=== PATIENT | male | born 1960 | race Caucasian/White ===

== ENCOUNTER 2023-04-22 00:43 | Inpatient (IN) | payer OTHER ==
[2023-04-22] MEDS ORDERED: predniSONE 20 MG TAB ONE (01:12)
[2023-04-22] MEDS ORDERED: Magnesium 2 GM/50 ML BAG (IN WATER) ONE (01:12)
[2023-04-22] MEDS ORDERED: Doxycycline 100 MG CAP ONE (01:12)
[2023-04-22] MEDS ORDERED: Ipratropium/Albuterol 3 ML NEB ONE ×2 (01:22→04:02)
[2023-04-22 01:24] LABS: #Basophils 0.1 thou/uL (0.0-0.2); #Eosinphils 0.1 thou/uL (0.0-0.7); #Monocytes 0.4 thou/uL (0.11-0.59); #Neutrophils 3.7 thou/uL (1.40-6.50); %Basophils 0.9 % (0.0-1.0); %Eosinophils 1.9 % (0.0-10.0); %Lymphocytes 36.1 % (21.0-51.0); %Monocytes 6.1 % (0.0-10.0); %Neutrophils 54.6 % (42.0-75.0); Hemoglobin 13.1 g/dL (14.0-18.0); Mean Corpuscular HGB CONC 34.8 g/dL (32.0-36.0); Mean Corpuscular Hemoglobin 32.8 pg (27.0-31.0); Mean Corpuscular Volume 94.2 fl (78.0-98.0); Mean Platelet Volume 9.1 fL (7.4-10.4); Platelet Count 304 10x3/uL (130-400); RBC Distribution Width 12.9 % (11.5-14.5); Red Blood Cell (RBC) Count 3.99 mill/uL (4.70-6.10); White Blood Cell (WBC) Count 6.7 10x3/uL (4.8-10.8)
[2023-04-22 02:49] LABS: ALT (SGPT) 21 U/L (8-55); AST (SGOT) 26 U/L (5-34); Albumin 3.9 g/dL (3.4-4.8); Alkaline Phosphatase 67 U/L (40-110); Anion Gap 20 mmol/L (10-20); BUN (Urea Nitrogen) 16 mg/dL (8.4-25.7); Bilirubin, Total 0.3 mg/dL (0.2-1.2); Calc. Creatinine Clearance 0 mL/min (70-130); Calcium 8.9 mg/dL (7.8-10.44); Carbon Dioxide 20 mmol/L (23-31); Chloride 105 mmol/L (98-107); Estimated GFR 76; Globulin 2.9 g/dL (2.4-3.5); Glucose 118 mg/dL (80-115); Potassium 3.8 mmol/L (3.5-5.1); Protein, Total 6.8 g/dL (5.8-8.1); Sodium 141 mmol/L (136-145)
[2023-04-22] MEDS ORDERED: Ondansetron PF 4 MG/2 ML Vial IVP PRN (03:38)
[2023-04-22] MEDS ORDERED: Ipratropium/Albuterol 3 ML NEB EZPAP PRN (03:39)
[2023-04-22 04:59] VITALS: BMI 20.2
[2023-04-22] MEDS ORDERED: methylPREDNISolone Sod Succ 40 MG VIAL ONE (06:17)
[2023-04-22] MEDS: methylPREDNISolone Sod Succ 40 MG VIAL IVP SCH ×3 (06:19→23:04)
[2023-04-22] MEDS: Ipratropium/Albuterol 3 ML NEB NEB SCH ×6 (08:40→23:30)
[2023-04-22] MEDS: Mometasone 200 MCG/Formoterol 5 MCG 120 PUFF INHALER INH SCH ×3 (08:40→18:26)
[2023-04-22] MEDS ORDERED: Ondansetron ODT 4 MG TAB PO PRN (12:14)
[2023-04-22] MEDS ORDERED: Electrolyte Replacement Protocol 1 EACH FS SCH (12:15)
[2023-04-22] MEDS ORDERED: Lorazepam 2 MG/ML VIAL SLOW IVP SCH (12:30)
[2023-04-22] MEDS: Lorazepam 1 MG TAB PO SCH ×2 (13:11→17:34)
[2023-04-22] MEDS: Thiamine HCl 200 MG/2 ML VIAL SLOW IVP SCH (13:11)
[2023-04-22] MEDS: Doxycycline 100 MG CAP PO SCH (13:17)
[2023-04-22] MEDS: busPIRone HCl 10 MG TAB PO SCH ×2 (14:41→20:49)
[2023-04-22] MEDS: Atorvastatin Calcium 10 MG TAB PO SCH (20:49)
[2023-04-22] MEDS: Lorazepam 1 MG TAB PO PRN (23:03)
[2023-04-23] MEDS: Doxycycline 100 MG CAP PO SCH ×2 (02:01→14:54)
[2023-04-23] MEDS: Ipratropium/Albuterol 3 ML NEB NEB SCH ×6 (04:58→22:29)
[2023-04-23] MEDS: methylPREDNISolone Sod Succ 40 MG VIAL IVP SCH ×3 (05:44→21:38)
[2023-04-23] MEDS: Lorazepam 1 MG TAB PO PRN ×4 (05:50→21:38)
[2023-04-23] MEDS: Mometasone 200 MCG/Formoterol 5 MCG 120 PUFF INHALER INH SCH ×2 (07:40→18:59)
[2023-04-23 07:44] LABS: #Monocytes 0.6 thou/uL (0.11-0.59); #Neutrophils 13.8 thou/uL (1.40-6.50); %Basophils 0.1 % (0.0-1.0); %Monocytes 3.6 % (0.0-10.0); %Neutrophils 89.7 % (42.0-75.0); Hemoglobin 13.4 g/dL (14.0-18.0); Mean Corpuscular HGB CONC 33.3 g/dL (32.0-36.0); Mean Corpuscular Hemoglobin 32.4 pg (27.0-31.0); Mean Corpuscular Volume 97.1 fl (78.0-98.0); Platelet Count 296 10x3/uL (130-400); RBC Distribution Width 12.8 % (11.5-14.5); Red Blood Cell (RBC) Count 4.14 mill/uL (4.70-6.10); White Blood Cell (WBC) Count 15.4 10x3/uL (4.8-10.8)
[2023-04-23 08:02] LABS: Anion Gap 15 mmol/L (10-20); BUN (Urea Nitrogen) 22 mg/dL (8.4-25.7); Calc. Creatinine Clearance 84 mL/min (70-130); Calcium 9.1 mg/dL (7.8-10.44); Carbon Dioxide 26 mmol/L (23-31); Chloride 101 mmol/L (98-107); Estimated GFR 99; Glucose 144 mg/dL (80-115); Potassium 4.9 mmol/L (3.5-5.1); Sodium 137 mmol/L (136-145)
[2023-04-23] MEDS: Folic Acid 1 MG TAB PO SCH (09:05)
[2023-04-23] MEDS: Hydrochlorothiazide 25 MG TAB PO SCH (09:05)
[2023-04-23] MEDS: busPIRone HCl 10 MG TAB PO SCH ×3 (09:05→19:57)
[2023-04-23] MEDS: Sertraline 100 MG TAB PO SCH (09:05)
[2023-04-23] MEDS: Multivit, Therapeutic 1 TAB PO SCH (09:05)
[2023-04-23] MEDS: Thiamine HCl 200 MG/2 ML VIAL SLOW IVP SCH (12:11)
[2023-04-23] MEDS: Atorvastatin Calcium 10 MG TAB PO SCH (19:57)
[2023-04-24] MEDS: Ipratropium/Albuterol 3 ML NEB NEB SCH ×6 (01:24→22:06)
[2023-04-24] MEDS: Doxycycline 100 MG CAP PO SCH ×2 (02:07→14:18)
[2023-04-24] MEDS: methylPREDNISolone Sod Succ 40 MG VIAL IVP SCH ×3 (05:52→21:50)
[2023-04-24 06:30] LABS: #Monocytes 0.4 thou/uL (0.11-0.59); #Neutrophils 12.2 thou/uL (1.40-6.50); %Basophils 0.1 % (0.0-1.0); %Lymphocytes 5.7 % (21.0-51.0); %Monocytes 3.2 % (0.0-10.0); %Neutrophils 89.9 % (42.0-75.0); Hemoglobin 13.7 g/dL (14.0-18.0); Mean Corpuscular HGB CONC 33.4 g/dL (32.0-36.0); Mean Corpuscular Hemoglobin 32.5 pg (27.0-31.0); Mean Corpuscular Volume 97.4 fl (78.0-98.0); Mean Platelet Volume 9.2 fL (7.4-10.4); Platelet Count 308 10x3/uL (130-400); RBC Distribution Width 13.1 % (11.5-14.5); Red Blood Cell (RBC) Count 4.21 mill/uL (4.70-6.10); White Blood Cell (WBC) Count 13.5 10x3/uL (4.8-10.8)
[2023-04-24 06:55] LABS: Anion Gap 15 mmol/L (10-20); BUN (Urea Nitrogen) 25 mg/dL (8.4-25.7); Calc. Creatinine Clearance 82 mL/min (70-130); Calcium 9.4 mg/dL (7.8-10.44); Carbon Dioxide 27 mmol/L (23-31); Chloride 99 mmol/L (98-107); Estimated GFR 98; Glucose 130 mg/dL (80-115); Potassium 4.5 mmol/L (3.5-5.1); Sodium 136 mmol/L (136-145)
[2023-04-24] MEDS: Mometasone 200 MCG/Formoterol 5 MCG 120 PUFF INHALER INH SCH ×2 (06:58→19:24)
[2023-04-24] MEDS: Folic Acid 1 MG TAB PO SCH (09:27)
[2023-04-24] MEDS: Multivit, Therapeutic 1 TAB PO SCH (09:27)
[2023-04-24] MEDS: Sertraline 100 MG TAB PO SCH (09:27)
[2023-04-24] MEDS: Hydrochlorothiazide 25 MG TAB PO SCH (09:27)
[2023-04-24] MEDS: busPIRone HCl 10 MG TAB PO SCH ×3 (09:28→20:23)
[2023-04-24] MEDS: Lorazepam 1 MG TAB PO PRN ×2 (09:28→16:10)
[2023-04-24] MEDS: Thiamine HCl 200 MG/2 ML VIAL SLOW IVP SCH (11:39)
[2023-04-24] MEDS ORDERED: Lorazepam 0.5 MG TAB PO SCH (12:15)
[2023-04-24] MEDS: Atorvastatin Calcium 10 MG TAB PO SCH (20:23)
[2023-04-24] MEDS: Acetaminophen 325 MG TAB PO PRN (21:41)
[2023-04-25] MEDS: Ipratropium/Albuterol 3 ML NEB NEB SCH ×6 (01:34→22:11)
[2023-04-25] MEDS: Doxycycline 100 MG CAP PO SCH ×2 (02:19→14:29)
[2023-04-25] MEDS: methylPREDNISolone Sod Succ 40 MG VIAL IVP SCH ×3 (05:59→21:19)
[2023-04-25 06:27] LABS: #Monocytes 0.5 thou/uL (0.11-0.59); #Neutrophils 10.8 thou/uL (1.40-6.50); %Basophils 0.1 % (0.0-1.0); %Neutrophils 89.3 % (42.0-75.0); Hemoglobin 13.2 g/dL (14.0-18.0); Mean Corpuscular HGB CONC 32.8 g/dL (32.0-36.0); Mean Corpuscular Hemoglobin 32.4 pg (27.0-31.0); Mean Platelet Volume 9.3 fL (7.4-10.4); Platelet Count 295 10x3/uL (130-400); RBC Distribution Width 12.7 % (11.5-14.5); Red Blood Cell (RBC) Count 4.07 mill/uL (4.70-6.10); White Blood Cell (WBC) Count 12.1 10x3/uL (4.8-10.8)
[2023-04-25 06:51] LABS: Anion Gap 14 mmol/L (10-20); BUN (Urea Nitrogen) 22 mg/dL (8.4-25.7); Calc. Creatinine Clearance 86 mL/min (70-130); Calcium 9.3 mg/dL (7.8-10.44); Carbon Dioxide 29 mmol/L (23-31); Chloride 99 mmol/L (98-107); Estimated GFR 99; Glucose 131 mg/dL (80-115); Potassium 4.8 mmol/L (3.5-5.1); Sodium 137 mmol/L (136-145)
[2023-04-25] MEDS: Mometasone 200 MCG/Formoterol 5 MCG 120 PUFF INHALER INH SCH ×2 (06:56→18:28)
[2023-04-25] MEDS: busPIRone HCl 10 MG TAB PO SCH ×3 (08:38→20:04)
[2023-04-25] MEDS: Multivit, Therapeutic 1 TAB PO SCH (08:39)
[2023-04-25] MEDS: Folic Acid 1 MG TAB PO SCH (08:39)
[2023-04-25] MEDS: Thiamine 100 MG TAB PO SCH (08:39)
[2023-04-25] MEDS: Sertraline 100 MG TAB PO SCH (08:39)
[2023-04-25] MEDS: Hydrochlorothiazide 25 MG TAB PO SCH (08:39)
[2023-04-25] MEDS: Acetaminophen 325 MG TAB PO PRN ×2 (08:40→18:41)
[2023-04-25] MEDS: Lorazepam 1 MG TAB PO PRN (08:40)
[2023-04-25] MEDS ORDERED: Lorazepam 0.5 MG TAB PO PRN (12:14)
[2023-04-25] MEDS: Atorvastatin Calcium 10 MG TAB PO SCH (20:04)
[2023-04-26] MEDS: Ipratropium/Albuterol 3 ML NEB NEB SCH ×6 (01:37→22:25)
[2023-04-26] MEDS: Doxycycline 100 MG CAP PO SCH ×2 (02:22→13:56)
[2023-04-26] MEDS: methylPREDNISolone Sod Succ 40 MG VIAL IVP SCH ×3 (05:53→21:09)
[2023-04-26] MEDS: Mometasone 200 MCG/Formoterol 5 MCG 120 PUFF INHALER INH SCH ×2 (07:00→18:28)
[2023-04-26] MEDS: Hydrochlorothiazide 25 MG TAB PO SCH (08:46)
[2023-04-26] MEDS: Sertraline 100 MG TAB PO SCH (08:46)
[2023-04-26] MEDS: Acetaminophen 325 MG TAB PO PRN (08:46)
[2023-04-26] MEDS: Multivit, Therapeutic 1 TAB PO SCH (08:46)
[2023-04-26] MEDS: Folic Acid 1 MG TAB PO SCH (08:46)
[2023-04-26] MEDS: busPIRone HCl 10 MG TAB PO SCH ×3 (08:46→21:09)
[2023-04-26] MEDS: Thiamine 100 MG TAB PO SCH (08:46)
[2023-04-26] MEDS: Atorvastatin Calcium 10 MG TAB PO SCH (21:09)
[2023-04-27] MEDS: Doxycycline 100 MG CAP PO SCH ×2 (02:17→13:35)
[2023-04-27] MEDS: Ipratropium/Albuterol 3 ML NEB NEB SCH ×6 (02:26→22:08)
[2023-04-27] MEDS: methylPREDNISolone Sod Succ 40 MG VIAL IVP SCH ×2 (06:10→14:38)
[2023-04-27] MEDS: Mometasone 200 MCG/Formoterol 5 MCG 120 PUFF INHALER INH SCH ×2 (06:41→18:26)
[2023-04-27] MEDS: Hydrochlorothiazide 25 MG TAB PO SCH (08:40)
[2023-04-27] MEDS: Sertraline 100 MG TAB PO SCH (08:40)
[2023-04-27] MEDS: busPIRone HCl 10 MG TAB PO SCH ×3 (08:41→20:10)
[2023-04-27] MEDS: Folic Acid 1 MG TAB PO SCH (08:41)
[2023-04-27] MEDS: Multivit, Therapeutic 1 TAB PO SCH ×2 (08:41→20:10)
[2023-04-27] MEDS: Thiamine 100 MG TAB PO SCH (08:43)
[2023-04-27] MEDS: predniSONE 20 MG TAB PO SCH (17:11)
[2023-04-27] MEDS: guaiFENesin ER 600 MG TAB PO SCH (20:10)
[2023-04-27] MEDS: Famotidine 20 MG TAB PO SCH (20:11)
[2023-04-27] MEDS: Atorvastatin Calcium 10 MG TAB PO SCH (20:11)
[2023-04-28] MEDS: Doxycycline 100 MG CAP PO SCH ×2 (01:13→14:54)
[2023-04-28] MEDS: Acetaminophen 325 MG TAB PO PRN (01:15)
[2023-04-28] MEDS: Ipratropium/Albuterol 3 ML NEB NEB SCH ×6 (02:13→22:40)
[2023-04-28] MEDS: Mometasone 200 MCG/Formoterol 5 MCG 120 PUFF INHALER INH SCH ×2 (07:39→18:42)
[2023-04-28] MEDS: guaiFENesin ER 600 MG TAB PO SCH ×2 (08:34→19:51)
[2023-04-28] MEDS: predniSONE 20 MG TAB PO SCH ×2 (08:34→17:25)
[2023-04-28] MEDS: Hydrochlorothiazide 25 MG TAB PO SCH (08:34)
[2023-04-28] MEDS: busPIRone HCl 10 MG TAB PO SCH ×3 (08:34→19:51)
[2023-04-28] MEDS: Folic Acid 1 MG TAB PO SCH (08:34)
[2023-04-28] MEDS: Famotidine 20 MG TAB PO SCH ×2 (08:34→19:51)
[2023-04-28] MEDS: Sertraline 100 MG TAB PO SCH (08:34)
[2023-04-28] MEDS: Thiamine 100 MG TAB PO SCH (08:34)
[2023-04-28] MEDS: Multivit, Therapeutic 1 TAB PO SCH ×2 (08:35→19:51)
[2023-04-28] MEDS: Atorvastatin Calcium 10 MG TAB PO SCH (19:51)
[2023-04-29] MEDS: Doxycycline 100 MG CAP PO SCH ×2 (01:52→15:17)
[2023-04-29] MEDS: Ipratropium/Albuterol 3 ML NEB NEB SCH ×6 (02:49→22:20)
[2023-04-29] MEDS: Mometasone 200 MCG/Formoterol 5 MCG 120 PUFF INHALER INH SCH ×2 (06:39→18:32)
[2023-04-29] MEDS: Hydrochlorothiazide 25 MG TAB PO SCH (08:49)
[2023-04-29] MEDS: Folic Acid 1 MG TAB PO SCH (08:49)
[2023-04-29] MEDS: Multivit, Therapeutic 1 TAB PO SCH ×2 (08:49→19:59)
[2023-04-29] MEDS: busPIRone HCl 10 MG TAB PO SCH ×3 (08:49→20:00)
[2023-04-29] MEDS: Famotidine 20 MG TAB PO SCH ×2 (08:49→20:00)
[2023-04-29] MEDS: guaiFENesin ER 600 MG TAB PO SCH ×2 (08:49→20:00)
[2023-04-29] MEDS: Thiamine 100 MG TAB PO SCH (08:49)
[2023-04-29] MEDS: predniSONE 20 MG TAB PO SCH ×2 (08:49→17:53)
[2023-04-29] MEDS: Sertraline 100 MG TAB PO SCH (08:49)
[2023-04-29] MEDS: Atorvastatin Calcium 10 MG TAB PO SCH (20:00)
[2023-04-29] MEDS: Acetaminophen 325 MG TAB PO PRN (20:09)
[2023-04-30] MEDS: Ipratropium/Albuterol 3 ML NEB NEB SCH ×4 (01:41→14:26)
[2023-04-30] MEDS: Doxycycline 100 MG CAP PO SCH ×2 (02:31→14:23)
[2023-04-30] MEDS: Mometasone 200 MCG/Formoterol 5 MCG 120 PUFF INHALER INH SCH (06:17)
[2023-04-30] MEDS: Famotidine 20 MG TAB PO SCH (09:28)
[2023-04-30] MEDS: Sertraline 100 MG TAB PO SCH (09:28)
[2023-04-30] MEDS: guaiFENesin ER 600 MG TAB PO SCH (09:29)
[2023-04-30] MEDS: busPIRone HCl 10 MG TAB PO SCH ×2 (09:29→14:23)
[2023-04-30] MEDS: predniSONE 20 MG TAB PO SCH (09:29)
[2023-04-30] MEDS: Folic Acid 1 MG TAB PO SCH (09:29)
[2023-04-30] MEDS: Hydrochlorothiazide 25 MG TAB PO SCH (09:29)
[2023-04-30] MEDS: Thiamine 100 MG TAB PO SCH (09:29)
[2023-04-30] MEDS: Multivit, Therapeutic 1 TAB PO SCH (09:29)
[2023-04-30 15:31] VITALS: BP 137/81; TEMP 98.9
== END 2023-04-30 18:04 | disposition home or self-care (01) | DRG 189 ==
LOC: ERS 00:43 → ERHOLD 03:33 → T4-B 07:26 → OBSVTOIN 12:18
PROVIDERS: ADMIT Internal Medicine; ATTEND Internal Medicine
DX: J96.21 Acute and chronic respiratory failure with hypoxia (principal); J44.1 Chronic obstructive pulmonary disease with (acute) exacerbation; E87.29 Other acidosis; F32.A Depression, unspecified; I10 Essential (primary) hypertension; E78.5 Hyperlipidemia, unspecified; F41.9 Anxiety disorder, unspecified; F17.210 Nicotine dependence, cigarettes, uncomplicated; R45.1 Restlessness and agitation; G47.33 Obstructive sleep apnea (adult) (pediatric); F10.20 Alcohol dependence, uncomplicated; D53.9 Nutritional anemia, unspecified; Z71.6 Tobacco abuse counseling; Z91.012 Allergy to eggs; Z99.89 Dependence on other enabling machines and devices; Z91.014 Allergy to mammalian meats; Z88.0 Allergy status to penicillin; Z82.49 Family history of ischemic heart disease and other diseases of the circulatory system; Z99.81 Dependence on supplemental oxygen; Z87.01 Personal history of pneumonia (recurrent); Z79.899 Other long term (current) drug therapy
CPT/HCPCS: 36415; 71045; 80048; 80053; 83880; 84484; 85025; 93005; 94640; 96365; 96372; G0378; J1650; J2060; J2920; J3411; J3475; J7512; J7620; Q0162